=== PATIENT | female | born 1985 | race Caucasian/White ===

== ENCOUNTER 2021-08-22 08:09 | Day surgery (SDC) | payer MEDICAID ==
[2021-08-22] MEDS ORDERED: Midazolam 1 MG/ML 2 ML SDV ONE (09:26)
[2021-08-22] MEDS ORDERED: fentaNYL 100 MCG/2 ML SDV ONE (09:26)
[2021-08-22] MEDS ORDERED: Propofol 200 MG/20 ML SDV ONE (09:26)
[2021-08-22] MEDS ORDERED: Sodium Chloride 0.9% 1,000 ML IV SCH (10:15)
[2021-08-22 11:14] VITALS: BP 108/66; PULSE 63
--- NOTE | 2021-08-23 07:49 | OR ---
DATE OF PROCEDURE: 08/22/2021 SURGEON: Dao Melgar MD PROCEDURE: Colonoscopy. FINDINGS: Normal colonoscopy. PREOPERATIVE DIAGNOSIS: Family history of colorectal cancer. POSTOPERATIVE DIAGNOSIS: Family history of colorectal cancer. RISKS: Risks, benefits, alternatives, and limitations including, but not limited to infection, bleeding, perforation, false positives, false negatives were explained to the patient and she wished to proceed. PROCEDURE IN DETAIL: The patient was placed in left lateral decubitus position. Digital rectal exam was performed without abnormality. Scope was introduced and advanced atraumatically to the ileocecal valve. A photo was taken of this. Scope was brought back to the ascending, transverse, descending colon, and retroflexed. No evidence of old or new blood. No masses. No polyps. No diverticulosis. No abnormalities on retroflexion. Greater than 8 minutes was spent removing the scope. The prep was acceptable, approximately 90% of the luminal surface could be seen. The patient tolerated the procedure well. Recommend repeat colonoscopy in 5 years. Dao Melgar MD /[id number]
== END 2021-08-22 11:30 | disposition home or self-care (01) ==
LOC: JP.SDS 08:09
PROVIDERS: ATTEND Surgery
DX: Z12.11 Encounter for screening for malignant neoplasm of colon (principal); Z80.0 Family history of malignant neoplasm of digestive organs; E66.9 Obesity, unspecified; Z88.5 Allergy status to narcotic agent
CPT/HCPCS: 45378; J2250; J2704; J3010; J7030